=== PATIENT | female | born 2000 | race African-American/Black ===

== ENCOUNTER 2021-01-31 10:22 | Emergency (ER) | payer OTHER ==
[~2021-01-31] VITALS: Ht 167.6 cm; Wt 79.4 kg
[2021-01-31 11:12] VITALS: BP 112/68
[2021-01-31] MEDS ORDERED: CYCL5TAB PO (11:49)
[2021-01-31] MEDS ORDERED: KETOROLAC TROMETHAMINE INJ 30 MG/ML VIAL ONE (11:56)
[2021-01-31] MEDS ORDERED: KETOROLAC TROMETHAMINE INJ 30 MG/ML VIAL IM ONE (12:00)
--- NOTE | 2021-01-31 12:04 | NUR ---
Patient discharged to home in stable condition. Written and verbal after care instructions given. Patient verbalizes understanding of instruction.
== END 2021-01-31 12:03 | disposition home or self-care (01) ==
LOC: ER 10:26
DX: T75.4XXA Electrocution, initial encounter (principal); G43.909 Migraine, unspecified, not intractable, without status migrainosus; Z88.0 Allergy status to penicillin; Z79.899 Other long term (current) drug therapy
CPT/HCPCS: 96372; 99283; J1885